=== PATIENT | female | born 1995 | race African-American/Black ===

== ENCOUNTER 2021-09-07 20:34 | Emergency (ER) | payer OTHER ==
--- NOTE | 2021-09-07 21:01 | ED Physician Documentation ---
History of Present Illness - Stated complaint Stated Complaint: PANICK ATTACK'S - Chief complaint Chief Complaint: Cardiac - History obtained from History obtained from: Patient - History of Present Illness Timing: Enter time (14:00), Today Improved by: nothing - Additonal information Additional information: Patient states "I'm having panic attacks". c/o feeling generalized anxiety, tremulousness, chest feels heavy and she feels like she needs to take rapid, shallow breaths. She has had similar episodes before and has tried the coping mechanisms recommended by her therapist (slow, deep breaths, meditation), but these have not worked today. Denies SI/HI/AH/VH. No inciting event. Has not missed doses of medications recently. She does not recall ever being prescribed an "as needed" medication for anxiety/panic Review of Systems Cardiac: reports: Chest pain / pressure. denies: Palpitations, Pedal edema, Calf pain Respiratory: reports: Dyspnea. denies: Cough, Hemoptysis, Wheezing GI: reports: Reviewed and negative Psychiatric: reports: Anxiety. denies: Depressed, Suicidal, Homicidal, Hallucinations, Delusions PD PAST MEDICAL HISTORY - Past Medical History Past Medical History: Yes Psych: Depression - Present Medications Home Medications: Ambulatory Orders Medication Instructions Recorded Confirmed LORazepam [Ativan] 0.5 mg PO Q6H PRN #14 tablet 09/07/21 - Allergies Allergies/Adverse Reactions: Allergies Allergy/AdvReac Type Severity Reaction Status Date / Time prazosin Allergy Rash Verified 09/07/21 20:50 PD ED PE NORMAL - Vitals Vital signs reviewed: Yes - General General: Alert and oriented X 3, Well developed/nourished, Other (appears anxious) - HEENT HEENT: Moist mucous membranes - Cardiac Cardiac: RRR, No murmur - Respiratory Respiratory: No respiratory distress, Clear bilaterally - Extremities Extremities: No edema Results - Vitals Vitals: Vital Signs - 24 hr 09/07/21 20:47 Temperature 36.7 C Heart Rate 104 H Respiratory 24 Rate Blood Pressure 134/77 H O2 Saturation 98 Oxygen O2 Source Room air PD MEDICAL DECISION MAKING - ED course Complexity details: re-evaluated patient, considered differential, d/w patient ED course: appears quite anxious, tearful at times. given 1mg lorazepam IM , appears less anxious although she reports inadequate improvement. Subsequently given 2mg IM lorazepam and on reevaluation she reports feeling better and is comfortable with d/c home. She is given 1mg PO lorazepam to help her with the overnight until pharmacy opens in AM . A prescription for a short course of lorazepam has been submitted to [facility] pharmacy in [place]. She was explicitly instructed to not drive home due to having received a sedative in ED (I discussed this BEFORE any doses were given). I also instructed her to not drive while taking doses of lorazepam Departure - Departure Disposition: Home, Self Care Clinical Impression: Anxiety Condition: Good Instructions: ED Panic Attack Prescriptions: LORazepam [Ativan] 0.5 mg PO Q6H PRN #14 tablet PRN Reason: Anxiety Comments: A prescription for lorazepam (ativan is a brand name; anti-anxiety medication) has been electronically submitted to [facility] pharmacy in [place].
[2021-09-07] MEDS ORDERED: LORazepam 2 MG/ML VIAL IM STA ×2 (21:16→22:12)
[2021-09-07] MEDS ORDERED: LORazepam 0.5 MG TABLET PO STA (23:19)
[2021-09-07 23:28] VITALS: BP 113/72
== END 2021-09-07 23:31 | disposition home or self-care (01) ==
LOC: ED 20:34
DX: F41.9 Anxiety disorder, unspecified (principal)
CPT/HCPCS: 93005; 96372; 99283; A9270; J2060